=== PATIENT | male | born 1960 | race Caucasian/White ===

== ENCOUNTER 2016-08-22 11:53 | Emergency (ER) | payer MEDICARE ==
[~2016-08-22] VITALS: Ht 177.8 cm; Wt 110.0 kg
[~2016-08-22 11:53] MED LIST: AMIT100T6 PO; GABA250S PO; GLUCTAB PO; GLYB1TAB51 PO; LABE100T2 PO; LANO0.2510 PO; LASI20TA PO; LOVA10TA; MORP1INJ45; NORV2.5T11; POTA8TAB27 PO; SPIR25 PO; SUPETAB30 PO; VITA400C28 PO; WARF7.5 PO
[2016-08-22 11:55] VITALS: BP 109/58; PULSE 82; RESP 14; TEMP 98.7; O2SAT 98
--- NOTE | 2016-08-22 12:10 | PD ---
HPI Chief Complaint: Injury Time Seen by Provider: 12:09 Travel History International Travel<30 days: No Contact w/Intl Traveler<30days: No Traveled to known affect area: No PFSH Past Medical History Arthritis: Yes (GENERALIZED) Autoimmune Disease: No Blood Disorders: No Cancer: No Cardiovascular Problems: Yes (" LOW EF PER ") High Cholesterol: Yes Cerebrovascular Accident: Yes (RIGHT HEMIPARESIS) Diabetes: Yes Endocrine: Yes Genitourinary: No Hypertension: Yes Immune Disorder: No Musculoskeletal: Yes (HX OF SPINAL STENOSIS) Neurologic: Yes Psychiatric: No Reproductive: No Respiratory: No Immunizations Current: Yes Thyroid Disease: Yes (HYPOTHYROIDISM) Past Surgical History Abdominal Surgery: Yes (APPENDECTOMY) Appendectomy: Yes Joint Replacement: Yes (RIGHT TOTAL HIP) Oral Surgery: Yes (FULL MOUTH EXTRACTION) Social History Alcohol Use: No Tobacco Use: Yes (1 PPD) Substance Use: No Allergies-Medications (Allergen,Severity, Reaction): Coded Allergies: Enalapril (Verified Allergy, Severe, Hives, 01/01/09) RXN= HIVES Trazodone (Verified Allergy, Severe, Hives, 01/01/09) RXN= HIVES Reported Meds & Prescriptions Reported Meds & Active Scripts Active Reported Elavil (Amitriptyline HCl) 100 Mg Tab 125 Mg PO DAILY Msir (Morphine Sulfate) 15 Mg Tab 0 Mg QIDPRN UNKNOWN DOSE Neurontin (Gabapentin) 250 Mg/5 Ml Cherelle 0 Mg PO UNKNOWN DOSE Mevacor (Lovastatin) 10 Mg Tab 0 Mg DAILY UNKNOWN DOSE Theragran M (Multivitamins/Minerals Therapeutic) 1 Tab Tab 1 Tab PO DAILY Vitamin D 400 Unit Tab 400 Unit PO Glucophage (Metformin HCl) 500 Mg Tab 500 Mg PO BID Diabeta (Glyburide) 5 Mg Tab 5 Mg PO BID Aldactone (Spironolactone) 25 Mg Tab 25 Mg PO DAILY Coumadin (Warfarin Sodium) 7.5 Mg Tab 7.5 Mg PO DAILY Lanoxin (Digoxin) 0.25 Mg Tab 0.25 Mg PO DAILY Slow-K (Potassium Chloride) 8 Meq Tabcr 8 Meq PO DAILY Lasix (Furosemide) 20 Mg Tab 0 Mg PO DAILY UNKNOWN DOSE Norvasc (Amlodipine Besylate) 2.5 Mg Tab 0 Mg DAILY UNKNOWN DOSE Normodyne (Labetalol HCl) 100 Mg Tab 0 Mg PO TID UNKNOWN DOSE Data Data Last Documented VS Vital Signs Date Time Temp Pulse Resp B/P Pulse Ox O2 Delivery O2 Flow Rate FiO2 08/22/16 11:55 98.7 82 14 109/58 98 Room Air Mark Morton Aug 22, 2016 12:10
--- NOTE | 2016-08-22 13:05 | PD ---
HPI Chief Complaint: Injury Time Seen by Provider: 13:02 Travel History International Travel<30 days: No Contact w/Intl Traveler<30days: No Traveled to known affect area: No History of Present Illness HPI 56-year-old male brought in status post x-rays of the right shoulder showing a humeral neck fracture with dislocation. Patient has a reported fall from the toilet 3 days ago. Patient has x-ray for healthcare plan in [place]. Patient has a history of right-sided weakness secondary to stroke during right hip replacement. 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 Patient also hit his right great toe which resulted in some bleeding. This has been bandaged by the family. Patient's orthopedist is Dr. Kendall. Patient was originally seen by Dr. Nelson, but I took over care. Patient has no fever, chills or other constitutional symptoms. Patient is allergic to amoxicillin, enalapril, Keflex, sulfa, and trazodone. PFSH Past Medical History Arthritis: Yes (GENERALIZED) Autoimmune Disease: No Blood Disorders: No Cancer: No Cardiovascular Problems: Yes (" LOW EF PER ") High Cholesterol: Yes Cerebrovascular Accident: Yes (RIGHT HEMIPARESIS) Diabetes: Yes Endocrine: Yes Genitourinary: No Hypertension: Yes Immune Disorder: No Musculoskeletal: Yes (HX OF SPINAL STENOSIS) Neurologic: Yes Psychiatric: No Reproductive: No Respiratory: No Immunizations Current: Yes Thyroid Disease: Yes (HYPOTHYROIDISM) Past Surgical History Abdominal Surgery: Yes (APPENDECTOMY) Appendectomy: Yes Joint Replacement: Yes (RIGHT TOTAL HIP) Oral Surgery: Yes (FULL MOUTH EXTRACTION) Social History Alcohol Use: No Tobacco Use: Yes (1 PPD) Substance Use: No Allergies-Medications (Allergen,Severity, Reaction): Coded Allergies: Enalapril (Verified Allergy, Severe, Hives, 01/01/09) RXN= HIVES Trazodone (Verified Allergy, Severe, Hives, 01/01/09) RXN= HIVES Amoxicillin (Verified Allergy, Unknown, 08/22/16) Keflex (Verified Allergy, Unknown, 08/22/16) Sulfa (Verified Allergy, Unknown, 08/22/16) Reported Meds & Prescriptions Reported Meds & Active Scripts Active Cleocin (Clindamycin HCl) 150 Mg Cap 300 Mg PO Q6H 10 Days Reported Elavil (Amitriptyline HCl) 100 Mg Tab 125 Mg PO DAILY Morphine Sulfate/Sodium C 50-0.9 mg/50Ml-% (Morphine Sulfate-Sodium Chlori) 15 Mg Tab 0 Mg QIDPRN UNKNOWN DOSE Neurontin (Gabapentin) 250 Mg/5 Ml Cherelle 0 Mg PO UNKNOWN DOSE [id number] Mg 10 Mg Tab 0 Mg DAILY UNKNOWN DOSE Theragran M (Multivitamins/Minerals Therapeutic) 1 Tab Tab 1 Tab PO DAILY Vitamin D (Cholecalciferol) 400 Unit Tab 400 Unit PO Glucophage XR 24 HR (Metformin HCl) 500 Mg Tab 500 Mg PO BID Diabeta (Glyburide) 5 Mg Tab 5 Mg PO BID Aldactone 25 mg (Spironolactone) 25 Mg Tab 25 Mg PO DAILY Coumadin (Warfarin Sodium) 7.5 Mg Tab 7.5 Mg PO DAILY Lanoxin (Digoxin) 0.25 Mg Tab 0.25 Mg PO DAILY Potassium Chloride ER 8 meq (Potassium Chloride) 8 Meq Tabcr 8 Meq PO DAILY Lasix (Furosemide) 20 Mg Tab 0 Mg PO DAILY UNKNOWN DOSE Norvasc (Amlodipine Besylate) 2.5 Mg Tab 0 Mg DAILY UNKNOWN DOSE [id number] Mg 100 Mg Tab 0 Mg PO TID UNKNOWN DOSE Review of Systems General / Constitutional: No: Fever, Chills Eyes: No: Visual changes HENT: No: Headaches Cardiovascular: No: Chest Pain or Discomfort Respiratory: No: Shortness of Breath Gastrointestinal: No: Abdominal Pain Genitourinary: No: Dysuria Musculoskeletal: Positive: Arthralgias, Limited ROM, Pain (see history of present illness.) Skin: No Rash Neurologic: No: Weakness Psychiatric: No: Depression Endocrine: No: Polydipsia Hematologic/Lymphatic: No: Easy Bruising Physical Exam Exam Limitations: Clinical Condition Narrative GENERAL: Patient appears in no acute distress. SKIN: Warm and dry. Normal color. Normal turgor. The right foot shows the great toenail has been removed with small amount of bleeding at the nail base. The right great toe itself has ecchymosis and swelling with localized erythema extending into the dorsal distal foot. There is a chronic nonhealing wound to the right posterior lateral foot consistent with his history. This appears to be granulating well without significant drainage. There is some ruborous changes to the right anterior distal solitario. No lymphangitis. No streaking. Dorsal right foot has increased warmth to the touch compared to the left. HEAD: Atraumatic. Normocephalic. EYES: Pupils equal and round. No scleral icterus. No injection or drainage. ENT: No nasal bleeding or discharge. Mucous membranes pink and moist. Pharynx is normal. NECK: Trachea midline. No JVD. CARDIOVASCULAR: Regular rate and rhythm. RESPIRATORY: No accessory muscle use. Clear to auscultation. Breath sounds equal bilaterally. GASTROINTESTINAL: Abdomen soft, non-tender, nondistended. Hepatic and splenic margins not palpable. MUSCULOSKELETAL: Extremities without clubbing, cyanosis, or edema. No obvious deformities. SEE SKIN. Patient has pain swelling to the right distal medial foot and ankle. Patient also has pain and decreased range of motion the right shoulder. Exam is limited secondary patient's pain and chronic right-sided weakness from previous stroke. NEUROLOGICAL: Awake and alert. No obvious cranial nerve deficits. Motor grossly within normal limits. Five out of 5 muscle strength in the arms and legs. Normal speech for patient's baseline. PSYCHIATRIC: Appropriate mood and affect; insight and judgment normal. Data Data Last Documented VS Vital Signs Date Time Temp Pulse Resp B/P Pulse Ox O2 Delivery O2 Flow Rate FiO2 08/22/16 13:10 89 18 91/57 97 Room Air 08/22/16 11:55 98.7 Orders Knee, Ltd (1 Or 2vws) (08/22/16 ) Tibia/Fibula (Ap/Lat) (08/22/16 ) Ankle, Complete ([id number]) (08/22/16 ) Foot, Complete ([id number]) (08/22/16 ) Complete Blood Count With Diff (08/22/16 12:46) Comprehensive Metabolic Panel (08/22/16 12:46) Prothrombin Time / Inr (Pt) (08/22/16 12:46) Act Partial Throm Time (Ptt) (08/22/16 12:46) Ct Shoulder W/O Contrast (08/22/16 ) Hydromorphone Pf Inj (Dilaudid Pf Inj) (08/22/16 13:45) Blood Glucose (08/22/16 13:50) Clindamycin Inj (Cleocin Inj) (08/22/16 15:00) Sling And Swathe (1/17/17 ) Labs Laboratory Tests Test 08/22/16 13:24 White Blood Count 12.7 TH/MM3 Red Blood Count 5.16 MIL/MM3 Hemoglobin 14.1 GM/DL Hematocrit 42.4 % Mean Corpuscular Volume 82.2 FL Mean Corpuscular Hemoglobin 27.4 PG Mean Corpuscular Hemoglobin 33.3 % Concent Red Cell Distribution Width 17.4 % Platelet Count 383 TH/MM3 Mean Platelet Volume 8.7 FL Neutrophils (%) (Auto) 62.4 % Lymphocytes (%) (Auto) 25.8 % Monocytes (%) (Auto) 9.0 % Eosinophils (%) (Auto) 1.4 % Basophils (%) (Auto) 1.4 % Neutrophils # (Auto) 7.9 TH/MM3 Lymphocytes # (Auto) 3.3 TH/MM3 Monocytes # (Auto) 1.1 TH/MM3 Eosinophils # (Auto) 0.2 TH/MM3 Basophils # (Auto) 0.2 TH/MM3 CBC Comment AUTO DIFF Differential Comment AUTO DIFF CONFIRMED Prothrombin Time 14.5 SEC Prothromb Time International 1.3 RATIO Ratio Activated Partial 27.3 SEC Thromboplast Time Sodium Level 138 MEQ/L Potassium Level 4.1 MEQ/L Chloride Level 103 MEQ/L Carbon Dioxide Level 30.5 MEQ/L Anion Gap 5 MEQ/L Blood Urea Nitrogen 5 MG/DL Creatinine 0.70 MG/DL Estimat Glomerular Filtration 117 ML/MIN Rate Random Glucose 69 MG/DL Calcium Level 8.8 MG/DL Total Bilirubin 0.5 MG/DL Aspartate Amino Transf 20 U/L (AST/SGOT) Alanine Aminotransferase 24 U/L (ALT/SGPT) Alkaline Phosphatase 92 U/L Total Protein 7.4 GM/DL Albumin 2.8 GM/DL [facility] Medical Decision Making Medical Screen Exam Complete: Yes Emergency Medical Condition: Yes Differential Diagnosis Right shoulder dislocation. Right shoulder fracture. Right great toe contusion. Possible fracture. Possible cellulitis. Narrative Course Patient is medically stable at time of exam. Labs ordered including CBC, CMP. X-rays previous he taken are reviewed by myself and Dr. Nelson. Call was placed to Dr. Kendall, and the patient is discussed at [address] of the right shoulder to fully evaluate the injury prior to further treatment. X-rays of the right foot and ankle are also ordered. Patient is given 1 mg Dilaudid IV. All x-rays of the right lower extremity are normal per radiologist. CT of the right shoulder shows nondisplaced proximal humeral head fracture with slight subluxation. Call was placed to Dr. Kendall patient was discussed. He felt this was not a surgical injury. Recommended patient be placed in a sling and swath, with follow-up in one week. Patient is given 600 mg clindamycin IV for question of cellulitis to the right lower extremity. Patient will be continued on clindamycin 300 mg 4 times a day 10 days. Patient is to continue his morphine for pain control at home. Patient is to follow-up with his construction helper regarding his right foot and toe. Dressing changes should be maintained as previous. Patient should follow with Dr. Kendall in 1 week. Patient may return to emergency Department with any worsening symptoms as needed. Diagnosis Primary Impression: Shoulder fracture, right Qualified Code: S42.91XA - Shoulder fracture, right, closed, initial encounter Additional Impressions: Contusion of toe, right Qualified Code: S90.211A - Contusion of right great toe with damage to nail, initial encounter Cellulitis Qualified Code: L03.115 - Cellulitis of right lower extremity Referrals: Ariel Kendall MD 1 week [employer] Patient Instructions: General Instructions Additional Instructions: All x-rays of the right lower extremity are normal per radiologist. CT of the right shoulder shows nondisplaced proximal humeral head fracture with slight subluxation. Call was placed to Dr. Kendall patient was discussed. He felt this was not a surgical injury. Recommended patient be placed in a sling and swath, with follow-up in one week. Patient is given 600 mg clindamycin IV for question of cellulitis to the right lower extremity. Patient will be continued on clindamycin 300 mg 4 times a day 10 days. Patient is to continue his morphine for pain control at home. Patient is to follow-up with his construction helper regarding his right foot and toe. Dressing changes should be maintained as previous. Patient should follow with Dr. Kendall in 1 week. Patient may return to emergency Department with any worsening symptoms as needed. Med/Other Pt SpecificInfo: Prescription(s) given Scripts Clindamycin (Cleocin)150 Mg Oak145 Mg PO Q6H 10 Days Prov:Nisa Nelson MD 08/22/16 Disposition: 01 DISCHARGE HOME Condition: Stable Praveen,Mark F. PA Aug 22, 2016 13:05
[2016-08-22 13:10] VITALS: BP 91/57; PULSE 89; RESP 18; O2SAT 97
[2016-08-22] MEDS ORDERED: HYDROmorphone HCL PF 1 MG/ML VIAL IV PUSH ONE (13:45)
[2016-08-22 13:49] LABS: AUTOMATED NEUTROPHIL # 7.9 TH/MM3 (1.8-7.7); BASOPHIL # 0.2 TH/MM3 (0-0.2); BASOPHIL % 1.4 % (0.0-2.0); EOSINOPHIL # 0.2 TH/MM3 (0-0.4); EOSINOPHIL % 1.4 % (0.0-4.0); HEMATOCRIT 42.4 % (39.0-51.0); LYMPH % 25.8 % (9.0-44.0); LYMPHOCYTE # 3.3 TH/MM3 (1.0-4.8); MEAN CELL VOLUME 82.2 FL (80.0-100.0); MEAN CORPUSCULAR HEMOGLOBIN 27.4 PG (27.0-34.0); MEAN CORPUSCULAR HGB CONC 33.3 % (32.0-36.0); NEUT % 62.4 % (16.0-70.0); PLATELET COUNT 383 TH/MM3 (150-450); RED BLOOD COUNT 5.16 MIL/MM3 (4.50-5.90); RED CELL DISTRIBUTION WIDTH 17.4 % (11.6-17.2); WHITE BLOOD COUNT 12.7 TH/MM3 (4.0-11.0)
[2016-08-22 13:51] LABS: HEMO FLAGS AUTO DIFF
[2016-08-22 13:53] LABS: INTERNATIONAL NORMALIZED RATIO 1.3 RATIO; PROTHROMBIN TIME - PATIENT 14.5 SEC (9.8-11.6)
[2016-08-22 13:56] LABS: APTT (PATIENT) 27.3 SEC (24.3-30.1)
[2016-08-22 13:57] LABS: ALKALINE PHOSPHATASE 92 U/L (45-117); ALT (GPT) 24 U/L (12-78); ANION GAP 5 MEQ/L (5-15); AST (GOT) 20 U/L (15-37); BICARBONATE 30.5 MEQ/L (21.0-32.0); BLOOD UREA NITROGEN 5 MG/DL (7-18); CHLORIDE 103 MEQ/L (98-107); GLOMERULAR FILTRATION RATE 117 ML/MIN (>89); POTASSIUM 4.1 MEQ/L (3.5-5.1); SODIUM (NA) 138 MEQ/L (136-145); TOTAL BILIRUBIN ADULT 0.5 MG/DL (0.2-1.0)
--- NOTE | 2016-08-22 14:18 | RADRPT ---
EXAM DATE/TIME: 08/22/2016 12:59 [facility] COMPARISON: ANKLE RIGHT COMPLETE ([id number]), August 22, 2016, 13:02. INDICATIONS : Fell 2 days ago, pain from right knee to right foot MEDICAL HISTORY : Stroke. Previous right leg fracture SURGICAL HISTORY : Unobtainable ENCOUNTER: Initial ACUITY: 2 days PAIN SCORE: Non-responsive. LOCATION: Right lower leg FINDINGS: There is a chronic healed deformity at the distal tibia. The knee and ankle joints paola ear normally aligned. The bones are osteopenic. There does appear to be edema within the lateral dis coleman thigh and calf region. CONCLUSION: 1. Chronic healed deformity at the distal tibia. 2. An acute fracture is not clearly seen. The bones are osteopenic. 3. Soft-tissue swelling. Gui Saenz MD on August 22, 2016 at 14:09 Board Certified Radiologist. This report was verified electronically.
--- NOTE | 2016-08-22 14:20 | RADRPT ---
EXAM DATE/TIME: 08/22/2016 13:00 [facility] COMPARISON: No previous studies available for comparison. INDICATIONS : Right knee pain, fell 2 days ago. MEDICAL HISTORY : Stroke. Prior lower leg fracture SURGICAL HISTORY : Unobtainable ENCOUNTER: Initial ACUITY: 2 days PAIN SCORE: Non-responsive. LOCATION: Right knee FINDINGS: The bones are osteopenic. A fracture is not seen. The knee joint is normally aligned. An effusion is not seen. Vascular calcifications are seen. There is soft-tissue swelling seen late rally. CONCLUSION: Lateral soft-tissue swelling. A fracture is not seen. Gui Saenz MD on August 22, 2016 at 14:10 Board Certified Radiologist. This report was verified electronically.
--- NOTE | 2016-08-22 14:26 | RADRPT ---
EXAM DATE/TIME: 08/22/2016 13:02 [facility] COMPARISON: No previous studies available for comparison. INDICATIONS : Right ankle pain, fell 2 days ago. Pain from right knee to right foot MEDICAL HISTORY : Stroke. Lower leg fracture SURGICAL HISTORY : Unobtainable ENCOUNTER: Initial ACUITY: 2 days PAIN SCORE: Non-responsive. LOCATION: Right ankle FINDINGS: There appears to be a healed fracture deformity at the distal tibia. An acute fracture is not clearl y seen. The bones are osteopenic. CONCLUSION: 1. An acute bony abnormality is not seen. 2. Chronic deformity seen at the distal tibia from prior fracturing. Gui Saenz MD on August 22, 2016 at 14:17 Board Certified Radiologist. This report was verified electronically.
--- NOTE | 2016-08-22 14:30 | RADRPT ---
EXAM DATE/TIME: 08/22/2016 13:05 [facility] COMPARISON: No previous studies available for comparison. INDICATIONS : Pain and swelling entire right foot, fell 2 days ago. MEDICAL HISTORY : Stroke. Lower leg fracture SURGICAL HISTORY : Unobtainable ENCOUNTER: Initial ACUITY: 2 days PAIN SCORE: Non-responsive. LOCATION: Right foot FINDINGS: The bones are osteopenic. An acute fracture is not seen. The bones and joints appear normally aligned. No foreign bodies are seen. CONCLUSION: Osteopenia. Gui Saenz MD on August 22, 2016 at 14:23 Board Certified Radiologist. This report was verified electronically.
[2016-08-22 14:33] LABS: SCAN/DIFF AUTO DIFF CONFIRMED
[2016-08-22] MEDS ORDERED: CLINDAMYCIN INJ 600 MG in SODIUM CHLORIDE 0.9% INJ 100 ML IV ONE (15:00)
[2016-08-22] MEDS ORDERED: CLIN150 PO (15:06)
--- NOTE | 2016-08-22 16:00 | PD.CONS ---
History of Present Illness Service Podiatry Consult Requested By ED Reason for Consult Right foot wound, right toe wound Primary Care Physician Arabella Antoine Jr, MD Diagnoses: (1) Contusion of toe, right History of Present Illness Pt well known to podiatry, Dr. Partida comes in for a fall with painful right shoulder and stubbing of right gret toe. Saw Dr. Partida yesterday for right plantar wound from excision of lesions months ago. Pt shoulder hurts and toe is achy but no real pain Past Family Social History Allergies: Coded Allergies: Enalapril (Verified Allergy, Severe, Hives, 01/01/09) RXN= HIVES Trazodone (Verified Allergy, Severe, Hives, 01/01/09) RXN= HIVES Amoxicillin (Verified Allergy, Unknown, 08/22/16) Keflex (Verified Allergy, Unknown, 08/22/16) Sulfa (Verified Allergy, Unknown, 08/22/16) Physical Exam Vital Signs Vital Signs Date Time Temp Pulse Resp B/P Pulse Ox O2 Delivery O2 Flow Rate FiO2 08/22/16 13:10 89 18 91/57 97 Room Air 08/22/16 11:55 98.7 82 14 109/58 98 Room Air Physical Exam GENERAL: This is a well-nourished, well-developed patient, in no apparent distress. SKIN: No rashes, ecchymoses or lesions. Cool and dry. HEAD: Atraumatic. Normocephalic. No temporal or scalp tenderness. EYES: Pupils equal round and reactive. Extraocular motions intact. No scleral icterus. No injection or drainage. ENT: Nose without bleeding, purulent drainage or septal hematoma. Throat without erythema, tonsillar hypertrophy or exudate. Uvula midline. Airway patent. NECK: Trachea midline. No JVD or lymphadenopathy. Supple, nontender, no meningeal signs. CARDIOVASCULAR: Regular rate and rhythm without murmurs, gallops, or rubs. RESPIRATORY: Clear to auscultation. Breath sounds equal bilaterally. No wheezes , rales, or rhonchi. GASTROINTESTINAL: Abdomen soft, non-tender, nondistended. No hepato-splenomegaly , or palpable masses. No guarding. MUSCULOSKELETAL: Extremities without clubbing, cyanosis, or edema. No joint tenderness, effusion, or edema noted. No calf tenderness. Negative Homans sign bilaterally. NEUROLOGICAL: Awake and alert. Cranial nerves II through XII intact. Motor and sensory grossly within normal limits. Five out of 5 muscle strength in all muscle groups. Normal speech. Laboratory Laboratory Tests Test 08/22/16 13:24 White Blood Count 12.7 Red Blood Count 5.16 Hemoglobin 14.1 Hematocrit 42.4 Mean Corpuscular Volume 82.2 Mean Corpuscular Hemoglobin 27.4 Mean Corpuscular Hemoglobin 33.3 Concent Red Cell Distribution Width 17.4 Platelet Count 383 Mean Platelet Volume 8.7 Neutrophils (%) (Auto) 62.4 Lymphocytes (%) (Auto) 25.8 Monocytes (%) (Auto) 9.0 Eosinophils (%) (Auto) 1.4 Basophils (%) (Auto) 1.4 Neutrophils # (Auto) 7.9 Lymphocytes # (Auto) 3.3 Monocytes # (Auto) 1.1 Eosinophils # (Auto) 0.2 Basophils # (Auto) 0.2 CBC Comment AUTO DIFF Differential Comment AUTO DIFF CONFIRMED Prothrombin Time 14.5 Prothromb Time International 1.3 Ratio Activated Partial 27.3 Thromboplast Time Sodium Level 138 Potassium Level 4.1 Chloride Level 103 Carbon Dioxide Level 30.5 Anion Gap 5 Blood Urea Nitrogen 5 Creatinine 0.70 Estimat Glomerular Filtration 117 Rate Random Glucose 69 Calcium Level 8.8 Total Bilirubin 0.5 Aspartate Amino Transf 20 (AST/SGOT) Alanine Aminotransferase 24 (ALT/SGPT) Alkaline Phosphatase 92 Total Protein 7.4 Albumin 2.8 Result Diagram: 08/22/16 1324 08/22/16 1324 Imaging Xray no right foot fracture seen Course RLE-Pulses faint Sensation deminsihed Mild diffuse right leg erythema Plantar wound about 1 cmx1.2 depth, no drainage no sign of infection Right distal tuft of hallux contusion with bruising no open wound noted, thickening of toenail Assessment and Plan Assessment and Plan Right great toe contusion, right lower extremity cellulitis, right chronic wound Foot dressed with dry dressing and compression to knee Plan is F/U with Dr. Partida on DC Antibiotics per primary to clear cellulitis Protect toe and Neosporin and bandaid sufficient thanks for consult Problem Qualifiers (1) Contusion of toe, right: Qualified Code: S90.211A - Contusion of right great toe with damage to nail, initial encounter Florencio Parra DPM Aug 22, 2016 16:00
--- NOTE | 2016-08-22 16:02 | RADRPT ---
EXAM DATE/TIME: 08/22/2016 14:21 [facility] COMPARISON: No previous studies available for comparison. INDICATIONS : Right shoulder pain. Fell from toilet 3 days ago. RADIATION DOSE: 41.45 CTDIvol (mGy) MEDICAL HISTORY : Cardiovascular disease. Diabetes mellitus type 2. Hypertension. SURGICAL HISTORY : None. ENCOUNTER: Initial ACUITY: 3 days PAIN SCALE: 8/10 LOCATION: Right shoulder. TECHNIQUE: Volumetric scanning of the shoulder was performed. Using automated exposure control and adjustment o f the mA and/or kV according to patient size, radiation dose was kept as low as reasonably achievable to obtain optimal diagnostic quality images. FINDINGS: BONES: Comminuted but only minimally displaced fracture through the humeral head and neck. JOINTS: No evidence of joint narrowing or effusion. No dislocation. SOFT TISSUES: Muscles, tendons, and neurovascular structures are grossly unremarkable. The integrity of the rotato r cuff tendons cannot be reliably evaluated on CT without intra-articular contrast. No evidence of m ass, organized fluid collection, or foreign body. CONCLUSION: Comminuted but only minimally displaced fracture through the humeral head and neck with no dislo cation. Sarabjit Russo MD on August 22, 2016 at 15:58 Board Certified Radiologist. This report was verified electronically.
--- NOTE | 2016-08-22 17:31 | PD ---
Data Data Last Documented VS Vital Signs Date Time Temp Pulse Resp B/P Pulse Ox O2 Delivery O2 Flow Rate FiO2 08/22/16 13:10 89 18 91/57 97 Room Air 08/22/16 11:55 98.7 Orders Knee, Ltd (1 Or 2vws) (08/22/16 ) Tibia/Fibula (Ap/Lat) (08/22/16 ) Ankle, Complete ([id number]) (08/22/16 ) Foot, Complete ([id number]) (08/22/16 ) Complete Blood Count With Diff (08/22/16 12:46) Comprehensive Metabolic Panel (08/22/16 12:46) Prothrombin Time / Inr (Pt) (08/22/16 12:46) Act Partial Throm Time (Ptt) (08/22/16 12:46) Ct Shoulder W/O Contrast (08/22/16 ) Hydromorphone Pf Inj (Dilaudid Pf Inj) (08/22/16 13:45) Blood Glucose (08/22/16 13:50) Clindamycin Inj (Cleocin Inj) (08/22/16 15:00) Sling And Swathe (08/22/16 ) Sling And Swathe (08/22/16 ) Labs Laboratory Tests Test 08/22/16 13:24 White Blood Count 12.7 TH/MM3 Red Blood Count 5.16 MIL/MM3 Hemoglobin 14.1 GM/DL Hematocrit 42.4 % Mean Corpuscular Volume 82.2 FL Mean Corpuscular Hemoglobin 27.4 PG Mean Corpuscular Hemoglobin 33.3 % Concent Red Cell Distribution Width 17.4 % Platelet Count 383 TH/MM3 Mean Platelet Volume 8.7 FL Neutrophils (%) (Auto) 62.4 % Lymphocytes (%) (Auto) 25.8 % Monocytes (%) (Auto) 9.0 % Eosinophils (%) (Auto) 1.4 % Basophils (%) (Auto) 1.4 % Neutrophils # (Auto) 7.9 TH/MM3 Lymphocytes # (Auto) 3.3 TH/MM3 Monocytes # (Auto) 1.1 TH/MM3 Eosinophils # (Auto) 0.2 TH/MM3 Basophils # (Auto) 0.2 TH/MM3 CBC Comment AUTO DIFF Differential Comment AUTO DIFF CONFIRMED Prothrombin Time 14.5 SEC Prothromb Time International 1.3 RATIO Ratio Activated Partial 27.3 SEC Thromboplast Time Sodium Level 138 MEQ/L Potassium Level 4.1 MEQ/L Chloride Level 103 MEQ/L Carbon Dioxide Level 30.5 MEQ/L Anion Gap 5 MEQ/L Blood Urea Nitrogen 5 MG/DL Creatinine 0.70 MG/DL Estimat Glomerular Filtration 117 ML/MIN Rate Random Glucose 69 MG/DL Calcium Level 8.8 MG/DL Total Bilirubin 0.5 MG/DL Aspartate Amino Transf 20 U/L (AST/SGOT) Alanine Aminotransferase 24 U/L (ALT/SGPT) Alkaline Phosphatase 92 U/L Total Protein 7.4 GM/DL Albumin 2.8 GM/DL MDM Supervised Visit with DELICIA: Yes Narrative Course The history, exam, and medical decision-making in the associated midlevel provider note were completed with my assistance. I reviewed and agree with the findings presented. I attest that I had a [id number] encounter with the patient on the same day, and personally performed and documented my assessment and findings in the medical record. *My assessment and Findings: This is a 56-year-old male who presents to the emergency department having had a fall 3 days ago injuring his right shoulder and right lower extremity. He also has chronic lymphedema and recurrent cellulitis in his lower extremities. Patient was placed on a monitor and an IV was established. X-rays were obtained CT of the shoulder was obtained at Dr. Diggs request. Patient has evidence of a humeral neck fracture with no dislocation. Patient will be discharged home in a sling and swath and will follow-up with Dr. Garcia as an outpatient. Diagnosis Primary Impression: Shoulder fracture, right Qualified Code: S42.91XA - Shoulder fracture, right, closed, initial encounter Additional Impressions: Cellulitis Qualified Code: L03.115 - Cellulitis of right lower extremity Contusion of toe, right Qualified Code: S90.211A - Contusion of right great toe with damage to nail, initial encounter Referrals: Ariel Kendall MD 1 week Clin Tech Patient Instructions: General Instructions Departure Forms: Tests/Procedures Additional Instruction: All x-rays of the right lower extremity are normal per radiologist. CT of the right shoulder shows nondisplaced proximal humeral head fracture with slight subluxation. Call was placed to Dr. Kendall patient was discussed. He felt this was not a surgical injury. Recommended patient be placed in a sling and swath, with follow-up in one week. Patient is given 600 mg clindamycin IV for question of cellulitis to the right lower extremity. Patient will be continued on clindamycin 300 mg 4 times a day 10 days. Patient is to continue his morphine for pain control at home. Patient is to follow-up with his slitter operator regarding his right foot and toe. Dressing changes should be maintained as previous. Patient should follow with Dr. Kendall in 1 week. Patient may return to emergency Department with any worsening symptoms as needed. Scripts Clindamycin (Cleocin)150 Mg [id number] Mg PO Q6H 10 Days Prov:Nisa Nelson MD 08/22/16 Disposition: 01 DISCHARGE HOME Condition: Stable Nisa Nelson MD Aug 22, 2016 17:31
== END 2016-08-22 17:40 | disposition home or self-care (01) ==
LOC: NEPC 11:53
DX: S90.211A Contusion of right great toe with damage to nail, initial encounter (principal); L03.115 Cellulitis of right lower limb; S42.291A Other displaced fracture of upper end of right humerus, initial encounter for closed fracture; I89.0 Lymphedema, not elsewhere classified; E78.00 Pure hypercholesterolemia, unspecified; E11.9 Type 2 diabetes mellitus without complications; I10 Essential (primary) hypertension; E03.9 Hypothyroidism, unspecified; I69.359 Hemiplegia and hemiparesis following cerebral infarction affecting unspecified side; F17.210 Nicotine dependence, cigarettes, uncomplicated; W18.11XA Fall from or off toilet without subsequent striking against object, initial encounter
CPT/HCPCS: 29240; 73200; 73560; 73590; 73610; 73630; 80053; 85025; 85610; 85730; 96374; 96375; 99284; J1170

== ENCOUNTER 2018-07-23 10:18 | Observation (INO) ==
--- NOTE | 2018-07-23 11:07 | ED ---
HPI General Chief Complaint: Chest Pain Stated Complaint: Chest pain Time Seen by Provider: 07/23/18 10:46 Source: patient Mode of arrival: ambulatory Limitations: other (Expressive aphasia) History of Present Illness HPI narrative: 58-year-old male presents with his with note of chest pain. He has expressive aphasia from a prior stroke and history is significantly limited. She states he pointed out his chest as if it was really bothering him this morning when they are on the way to his orthopedic physician follow-up. He was going to that physician for evaluation of intermittent knee pain. History is obtained from the and limited Related Data Home Medications Medication Instructions Recorded Confirmed alprazolam 0.25 mg PO BID 07/23/18 07/23/18 escitalopram oxalate 20 mg PO DAILY 07/23/18 07/23/18 fluticasone 2 spray INTRANASAL DAILY 07/23/18 07/23/18 furosemide 20 mg PO DAILY 07/23/18 07/23/18 gabapentin 600 mg PO TID 07/23/18 07/23/18 gentamicin 1 applic TOPICAL BID 07/23/18 07/23/18 glipizide 10 mg PO BID 07/23/18 07/23/18 levothyroxine 75 mcg PO DAILY 07/23/18 07/23/18 lovastatin 40 mg PO QPM 07/23/18 07/23/18 metformin 1,000 mg PO BID 07/23/18 07/23/18 montelukast 10 mg PO QPM 07/23/18 07/23/18 potassium chloride 10 meq PO DAILY 07/23/18 07/23/18 warfarin 5 mg PO 07/23/18 warfarin 7.5 mg PO 07/23/18 Allergies Allergy/AdvReac Type Severity Reaction Status Date / Time enalaprilat Allergy Severe Hives Unverified 03/20/17 16:24 trazodone Allergy Severe Hives Unverified 03/20/17 16:24 amoxicillin Allergy Unknown Unverified 03/20/17 16:24 cephalexin Allergy Unknown Unverified 03/20/17 16:24 Sulfa (Sulfonamide Allergy Unknown Unverified 03/20/17 16:24 Antibiotics) Review of Systems ROS: all other systems reviewed are negative (per ) PMFSH History History Provided By: Family Member (Hypertension, diabetes, stroke per ) Medical History Medical History Chest pain (Acute) Diabetes (Acute) Primary cancer of skin of right foot (Acute) Stroke (Acute) Surgical History Surgical History History of total right hip replacement (Acute) Social History Social History Substance History: No History of Abuse Smoking Status: Current every day smoker Tobacco Type: Cigarettes How Often Do You Have a Drink Containing Alcohol: Monthly or less Recent Travel in [facility] within the Last 8 Weeks: No Recent Out of Country Travel within the Last 8 Weeks: No Exam Narrative Exam Narrative: GENERAL: 58 y/o male in no apparent distress SKIN: Focused skin assessment warm/dry. HEAD: Atraumatic. Normocephalic. EYES: Pupils equal and round. No scleral icterus. No injection or drainage. ENT: No nasal bleeding or discharge. Mucous membranes pink and moist. NECK: Trachea midline. CARDIOVASCULAR: Regular rate and rhythm. RESPIRATORY: No accessory muscle use. no increased effort GASTROINTESTINAL: Abdomen soft, non-tender, nondistended. MUSCULOSKELETAL: No obvious deformities. No clubbing. No cyanosis. Compression bandage noted to right leg NEUROLOGICAL: Awake. Wheelchair-bound, moves all extremities. Expressive aphasia Course Reevaluation(s) Reevaluation #1: Patient's INR is subtherapeutic at 1.7. Will check CT pulmonary to rule out PE given risk factors, Doppler of right lower leg will be added on as patient also has swelling and redness noted to this leg when bandage removed Reevaluation #2: CT without PE, Doppler ultrasound without DVT. Given patient' s risk factors with diabetes and age he will need further cardiac workup. He was given clindamycin for possible beginnings of cellulitis to his right lower leg. Given his wheelchair-bound status and other comorbidities he will need to be admitted to medicine for further cardiac workup Consultations Consultation #1: dr dela cruz agrees to admit Initial Documented Vital Signs Temperature 97.6 F 07/23/18 10:26 Pulse Rate 65 07/23/18 10:26 Respiratory Rate 16 07/23/18 10:26 Blood Pressure 114/64 07/23/18 10:26 Pulse Oximetry 96 07/23/18 10:26 Last Documented Vital Signs Temperature 97.6 F 07/23/18 10:26 Pulse Rate 60 07/23/18 12:34 Respiratory Rate 17 07/23/18 12:34 Blood Pressure 96/60 L 07/23/18 12:34 Pulse Oximetry 94 L 07/23/18 12:34 Medical Decision Making MDM Narrative Medical decision making narrative: We will check blood work, chest x-ray, EKG. INR is subtherapeutic will check CT to rule out PE. If initial testing is negative and INR is therapeutic will admit for further cardiac testing Medical Screen Exam Complete: Yes Emergency Medical Condition: Yes Differential Diagnosis Differential Diagnosis: pe, musculoskeletal, cardiac, gastritis Lab Data Lab results reviewed: Yes I reviewed the patient's lab results. Result diagrams: 07/23/18 11:12 07/23/18 11:12 Lab Results 07/23/18 07/23/18 07/23/18 Range/Units 11:12 11:12 11:12 WBC 9.3 (4.0-11.0) th/mm3 RBC 5.31 (4.50-5.90) mil/mm3 Hgb 16.2 (13.0-17.0) gm/dL Hct 47.5 (39.0-51.0) % MCV 89.4 (80.0-100.0) fL MCH 30.6 (27.0-34.0) pg MCHC 34.2 (32.0-36.0) % RDW 16.4 (11.6-17.2) % Plt Count 377 (150-450) th/mm3 MPV 8.4 (7.0-11.0) fL Neut % (Auto) 69.8 (16.0-70.0) % Lymph % (Auto) 18.8 (9.0-44.0) % Bledsoe % (Auto) 7.7 (0.0-8.0) % Eos % (Auto) 2.8 (0.0-4.0) % Baso % (Auto) 0.9 (0.0-2.0) % Neut # (Auto) 6.5 (1.8-7.7) th/mm3 Lymph # (Auto) 1.7 (1.0-4.8) th/mm3 Bledsoe # (Auto) 0.7 (0.0-0.9) th/mm3 Eos # (Auto) 0.3 (0.0-0.4) th/mm3 Baso # (Auto) 0.1 (0.0-0.2) th/mm3 WBC Differential . Differential Comment Auto diff final PT 16.9 H (9.8-11.6) sec INR 1.7 Ratio APTT 41.1 H (23.4-31.7) sec Sodium 139 (136-145) meq/L Potassium 4.4 (3.5-5.1) meq/L Chloride 104 (98-107) meq/L Carbon Dioxide 28.0 (21.0-32.0) meq/L Anion Gap 7 (5-15) meq/L BUN 8 (7-18) mg/dL Creatinine 0.83 (0.60-1.30) mg/dL Estimated GFR Greater than 89 (>89) mL/min Random Glucose 85 (74-106) mg/dL Calcium 8.9 (8.5-10.1) mg/dL Magnesium 2.2 (1.5-2.5) mg/dL Total Bilirubin 0.4 (0.2-1.0) mg/dL AST 18 (15-37) U/L ALT 20 (12-78) U/L Alkaline Phosphatase 121 H (45-117) U/L Total Creatine Kinase 40 (39-308) U/L Troponin I Less than 0.02 L (0.02-0.05) ng/mL B-Natriuretic Peptide (0-100) pg/mL Total Protein 8.2 (6.4-8.2) g/dL Albumin 3.1 L (3.4-5.0) g/dL 07/23/18 Range/Units 13:08 WBC (4.0-11.0) th/mm3 RBC (4.50-5.90) mil/mm3 Hgb (13.0-17.0) gm/dL Hct (39.0-51.0) % MCV (80.0-100.0) fL MCH (27.0-34.0) pg MCHC (32.0-36.0) % RDW (11.6-17.2) % Plt Count (150-450) th/mm3 MPV (7.0-11.0) fL Neut % (Auto) (16.0-70.0) % Lymph % (Auto) (9.0-44.0) % Bledsoe % (Auto) (0.0-8.0) % Eos % (Auto) (0.0-4.0) % Baso % (Auto) (0.0-2.0) % Neut # (Auto) (1.8-7.7) th/mm3 Lymph # (Auto) (1.0-4.8) th/mm3 Bledsoe # (Auto) (0.0-0.9) th/mm3 Eos # (Auto) (0.0-0.4) th/mm3 Baso # (Auto) (0.0-0.2) th/mm3 WBC Differential Differential Comment PT (9.8-11.6) sec INR Ratio APTT (23.4-31.7) sec Sodium (136-145) meq/L Potassium (3.5-5.1) meq/L Chloride (98-107) meq/L Carbon Dioxide (21.0-32.0) meq/L Anion Gap (5-15) meq/L BUN (7-18) mg/dL Creatinine (0.60-1.30) mg/dL Estimated GFR (>89) mL/min Random Glucose (74-106) mg/dL Calcium (8.5-10.1) mg/dL Magnesium (1.5-2.5) mg/dL Total Bilirubin (0.2-1.0) mg/dL AST (15-37) U/L ALT (12-78) U/L Alkaline Phosphatase (45-117) U/L Total Creatine Kinase (39-308) U/L Troponin I (0.02-0.05) ng/mL B-Natriuretic Peptide 30 (0-100) pg/mL Total Protein (6.4-8.2) g/dL Albumin (3.4-5.0) g/dL Imaging Data Attestation: I personally reviewed and interpreted this imaging study as follows : Radiologist's impression: Chest X-Ray 07/23/18 10:38 CONCLUSION: Mild increased perihilar interstitial markings are noted particularly on the left consistent with possible perihilar infiltrates. Chest CTA 07/23/18 11:47 CONCLUSION: 1. This study is negative for pulmonary embolism. 2. Patchy infiltrate within the right lower lobe consistent with atelectasis and/or pneumonia. Clinical correlation is recommended. 3. Moderate bullous emphysema bilaterally. 4. Elevation of the right hemidiaphragm. 5. Degenerative changes and scoliosis of the thoracic spine. Venous Doppler Study 07/23/18 14:09 CONCLUSION: 1. The study is negative for lower extremity deep venous thrombosis. Discharge Plan Discharge Disposition Patient Disposition: ED Admit(ED Internal Use Only) Discharge Order Discharge Orders: ED Use Only Admit Order (Routine); Ordered 07/23/18 Ordered By: Sharron Garcia Discharge Details Diagnosis: Chest pain Physicians Team ED Provider: Sharron Garcia Primary Care Provider: Arabella Antoine Rxs /Orders / Referrals /Forms Prescriptions: No Action gabapentin 600 mg Tablet 600 mg PO TID RF: 0 lovastatin 40 mg Tablet 40 mg PO QPM RF: 0 potassium chloride 10 mEq Tablet Extended Release 10 meq PO DAILY RF: 0 levothyroxine 75 mcg Tablet 75 mcg PO DAILY RF: 0 alprazolam 0.25 mg Tablet 0.25 mg PO BID RF: 0 montelukast 10 mg Tablet 10 mg PO QPM RF: 0 furosemide 20 mg Tablet 20 mg PO DAILY RF: 0 fluticasone 50 mcg/actuation [place],Suspension 2 spray INTRANASAL DAILY RF: 0 escitalopram oxalate 20 mg Tablet 20 mg PO DAILY RF: 0 gentamicin 0.1 % Ointment 1 applic TOPICAL BID RF: 0 glipizide 10 mg Tablet 10 mg PO BID RF: 0 metformin 1,000 mg Tablet 1,000 mg PO BID RF: 0 warfarin 5 mg Tablet 5 mg PO RF: 0 warfarin 7.5 mg Tablet 7.5 mg PO RF: 0 Discharge Instructions Patient Printed Instructions: Chest Pain (ED) Status ED Status: Admitted Observation Patient
[2018-07-23 11:33] LABS: Baso # (Auto) 0.1 th/mm3 (0.0-0.2); Baso % (Auto) 0.9 % (0.0-2.0); Eos # (Auto) 0.3 th/mm3 (0.0-0.4); Eos % (Auto) 2.8 % (0.0-4.0); Hematocrit 47.5 % (39.0-51.0); Hemoglobin 16.2 gm/dL (13.0-17.0); Lymph # (Auto) 1.7 th/mm3 (1.0-4.8); Lymph % (Auto) 18.8 % (9.0-44.0); Mean Corpuscular HGB Conc 34.2 % (32.0-36.0); Mean Corpuscular Hemoglobin 30.6 pg (27.0-34.0); Mean Corpuscular Volume 89.4 fL (80.0-100.0); Mean Platelet Volume 8.4 fL (7.0-11.0); Mono # (Auto) 0.7 th/mm3 (0.0-0.9); Mono % (Auto) 7.7 % (0.0-8.0); Neut # (Auto) 6.5 th/mm3 (1.8-7.7); Neut % (Auto) 69.8 % (16.0-70.0); Platelet Count 377 th/mm3 (150-450); Red Blood Count 5.31 mil/mm3 (4.50-5.90); Red Cell Distribution Width 16.4 % (11.6-17.2); White Blood Count 9.3 th/mm3 (4.0-11.0)
[2018-07-23 11:44] LABS: Activated Partial Thrombo Time 41.1 sec (23.4-31.7); INR 1.7 Ratio; Prothrombin Time 16.9 sec (9.8-11.6)
[2018-07-23 11:45] LABS: Alanine Aminotransferase 20 U/L (12-78); Albumin 3.1 g/dL (3.4-5.0); Anion Gap 7 meq/L (5-15); Aspartate Aminotransferase 18 U/L (15-37); Blood Urea Nitrogen 8 mg/dL (7-18); Calcium 8.9 mg/dL (8.5-10.1); Chloride 104 meq/L (98-107); Glomerular Filtration Rate Greater Than 89 mL/min (>89); Glucose,Random 85 mg/dL (74-106); Magnesium 2.2 mg/dL (1.5-2.5); Potassium 4.4 meq/L (3.5-5.1); Sodium 139 meq/L (136-145)
[2018-07-23 11:49] LABS: Alkaline Phosphatase 121 U/L (45-117); Total Protein 8.2 g/dL (6.4-8.2)
[2018-07-23 11:52] LABS: Creatine Kinase 40 U/L (39-308)
--- NOTE | 2018-07-23 12:48 | XR ---
EXAM DATE: 07/23/2018 12:11 PM EST AGE/SEX: 58 years / Male INDICATIONS: Chest pain. CLINICAL DATA: This is the patient's initial encounter. Patient reports that signs and symptoms have been present for 1 day and indicates a pain score of 5/10. MEDICAL/SURGICAL HISTORY: . Cardiovascular disease. Diabetes mellitus type 2. Hypertension. No ne. COMPARISON: No prior exams available for comparison. FINDINGS: Mild increased perihilar interstitial markings are noted particularly on the left consistent with pos sible perihilar infiltrates. The heart is top normal in size. CONCLUSION: Mild increased perihilar interstitial markings are noted particularly on the left consistent with pos sible perihilar infiltrates. Electronically signed by: Ike Reina MD Board Certified Radiologist 07/23/2018 12:46 PM EST
--- NOTE | 2018-07-23 15:19 | US ---
EXAM DATE: 07/23/2018 2:48 PM EST AGE/SEX: 58 years / Male INDICATIONS: Right leg swelling. CLINICAL DATA: This is the patient's initial encounter. Patient reports that signs and symptoms have been present for 2 days and indicates a pain score of 7/10. MEDICAL/SURGICAL HISTORY: Diabetes. Stroke. Right foot skin cancer. Total knee replacement, ri ght. COMPARISON: TLI, MR LOWER LEG W/O CONTRAST, RIGHT, 11/14/2016. . TECHNIQUE: Venous ultrasound of both lower extremities was performed from the inguinal ligament to t he proximal calf. Real-time, color Doppler and spectral tracing, compression and augmentation techni ques were used. FINDINGS: Normal compression of the deep venous system from the inguinal region to the proximal calf . No echogenic clot is seen. Normal response of the venous system to augmentation and respiration. CONCLUSION: 1. The study is negative for lower extremity deep venous thrombosis. Electronically signed by: Ike Reina MD Board Certified Radiologist 07/23/2018 3:17 PM EST
--- NOTE | 2018-07-23 15:24 | CT ---
EXAM DATE: 07/23/2018 3:15 PM EST AGE/SEX: 58 years / Male INDICATIONS: Chest pain. Short of breath. CLINICAL DATA: This is the patient's initial encounter. Patient reports that signs and symptoms have been present for 1 day and indicates a pain score of 4/10. MEDICAL/SURGICAL HISTORY: Diabetes. Stroke. None. RADIATION DOSE: 10.81 CTDI (mGy) COMPARISON: No prior exams available for comparison. TECHNIQUE: Volumetric scanning was performed using a multi-row detector CT scanner during bolus infu matthew of 73 ml Omnipaque 350 (iohexol) nonionic water-soluble contrast as a single exam dose. The leroy a was post processed with a variety of visualization algorithms including full volume maximum intensi ty projection and sliding thin slab reformation. Using automated exposure control and adjustment of t he mA and/or kV according to patient size, radiation dose was kept as low as reasonably achievable to obtain optimal diagnostic quality images. DICOM format image data is available electronically for r eview and comparison. FINDINGS: Pulmonary Arteries: No filling defects are seen in the pulmonary arteries out to the subsegmental ve ssels. The left and right pulmonary arteries are normal in diameter. Lung: Moderate bullous emphysema is noted bilaterally. Patchy infiltrate is noted within the right l ower lobe consistent with atelectasis and/or pneumonia. Clinical correlation is recommended. There is elevation of the right hemidiaphragm. Effusion: None. Mediastinum: No evidence of mediastinal or hilar adenopathy. Other: The axilla is unremarkable. Degenerative changes and scoliosis are noted throughout the thora cic spine. CONCLUSION: 1. This study is negative for pulmonary embolism. 2. Patchy infiltrate within the right lower lobe consistent with atelectasis and/or pneumonia. Clini mitch correlation is recommended. 3. Moderate bullous emphysema bilaterally. 4. Elevation of the right hemidiaphragm. 5. Degenerative changes and scoliosis of the thoracic spine. Electronically signed by: Ike Reina MD Board Certified Radiologist 07/23/2018 3:22 PM EST
[2018-07-23] MEDS ORDERED: Clindamycin Inj 600 MG/4 ML Vial IV.SIG ONE (15:30)
[2018-07-23] MEDS ORDERED: Acetaminophen 325 MG Tablet PO PRN (16:08)
[2018-07-23] MEDS ORDERED: ALPRAZolam 0.25 MG Tablet PO PRN (16:13)
[2018-07-23] MEDS ORDERED: Enoxaparin Inj 40 MG/0.4 ML Syringe SQ ONE (16:15)
--- NOTE | 2018-07-23 16:19 | P.HPIM ---
History of Present Illness Primary Care Physician: Arabella Antoine MD History of Present Illness: Mr. 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 Pt presented to the ED at [facility] [place] on 07/23/18 with reported chest pain. The pt is unable to provide meaningful information due to his expressive aphasia from a prior stroke so history is significantly limited. His was present for the examination and states that the pt pointed to his chest as if it was really bothering him this morning when they were on their way to his orthopedic physician follow-up for evaluation of intermittent knee pain. Labs in the ED notes his Coumadin to be subtherapeutic with INR 1.7. His CE were negative x 1. He had a CTA which was negative for PE, noted patchy infiltrate within the right lower lobe consistent with atelectasis, moderate bullous emphysema bilaterally. Pt was also noted to have some redness and swelling to his RLE but his states that these are chronic skin changes. LE Venous Doppler Study was negative for lower extremity deep venous thrombosis. He was given a dose of Clindamycin for possible cellulitis in the ED. 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 COPD Diabetes HTN Hyperlipidemia Hypothyroidism Prostate cancer currently undergoing XRT with Dr. Lea Osteoarthritis 2D echo (04/16/15): - Estimated EF 50-55% - Diastolic dysfunction Past Surgical Hx: Appendectomy Right knee arthroscopy Total hip replacement, right Family Hx: Noncontributory Social Hx: Hx of tobacco use No reported alcohol or illicit drug use Pt is wheelchair bound Diagnosis (1) History of CVA with residual deficit: (2) Chest pain: (3) HTN (hypertension): (4) COPD (chronic obstructive pulmonary disease): (5) Diabetes mellitus: Medications and Allergies Allergies Allergy/AdvReac Type Severity Reaction Status Date / Time enalaprilat Allergy Severe Hives Verified 07/24/18 16:10 trazodone Allergy Severe Hives Verified 07/24/18 16:10 amoxicillin Allergy Mild Hives Verified 07/24/18 16:10 cephalexin Allergy Mild Hives Verified 07/24/18 16:10 Sulfa (Sulfonamide Allergy Mild Hives Verified 07/24/18 16:10 Antibiotics) Home Medications Medication Instructions Recorded Confirmed Type alprazolam 0.25 mg PO BID PRN 07/23/18 07/23/18 History escitalopram oxalate 20 mg PO HS 07/23/18 07/23/18 History fluticasone 2 spray INTRANASAL DAILY 07/23/18 07/23/18 History furosemide 20 mg PO DAILY 07/23/18 07/23/18 History gabapentin 600 mg PO TID 07/23/18 07/23/18 History gentamicin 1 applic TOPICAL BID 07/23/18 07/23/18 History glipizide 5 mg PO BID 07/23/18 07/23/18 History levothyroxine 75 mcg PO DAILY 07/23/18 07/23/18 History lovastatin 40 mg PO QPM 07/23/18 07/23/18 History metformin 1,000 mg PO BID 07/23/18 07/23/18 History montelukast 10 mg PO QPM 07/23/18 07/23/18 History morphine 30 mg PO Q6H PRN 07/23/18 07/23/18 History potassium chloride 10 meq PO DAILY 07/23/18 07/23/18 History warfarin 5 mg PO SUTUWEFRSA 07/23/18 07/23/18 History warfarin 7.5 mg PO MOTH 07/23/18 07/23/18 History Active Medications: Active Medications Acetaminophen (Tylenol) 650 mg PO Q4H PRN PRN Reason: Temp > 100.4 Al Hydroxide/Mg Hydroxide (Milk Of Magnesia Liq) 30 ml PO Q12H PRN PRN Reason: Mild Constipation Alprazolam (Xanax) 0.25 mg PO BID PRN PRN Reason: Anxiety Escitalopram Oxalate (Lexapro) 20 mg PO HS NEETU Levothyroxine Sodium (Synthroid) 75 mcg PO DAILY NEETU Montelukast Sodium (Singulair) 10 mg PO QPM NEETU Non-Formulary Medication (Gabapentin [Gabapentin]) 600 mg PO TID NEETU Non-Formulary Medication (Lovastatin [Lovastatin]) 40 mg PO QPM NEETU Ondansetron HCl (Zofran Inj) 4 mg IV.PUSH Q6H PRN PRN Reason: NAUSEA OR VOMITING Senna/Docusate Sodium (Carol-Colace) 1 tab PO BID [facility] Sodium Chloride (Ns Flush) 2 ml IV.FLUSH UNSCH PRN PRN Reason: FLUSH AFTER USING IV ACCESS Sodium Chloride (Ns Flush) 2 ml IV.FLUSH BID NEETU Sodium Chloride (Ns Flush) 2 ml IV.FLUSH PRN PRN PRN Reason: FLUSH AFTER USING IV ACCESS Warfarin Sodium (Coumadin) 5 mg PO SUTUWEFRSA NEETU Warfarin Sodium (Coumadin) 7.5 mg PO MOTH [facility] Physical Exam Vital signs: Last Vital Signs Temp 97.6 F 07/23/18 10:26 Pulse 60 07/23/18 12:34 Resp 17 07/23/18 12:34 BP 96/60 L 07/23/18 12:34 Pulse Ox 94 L 07/23/18 12:34 Narrative: GENERAL: NAD, Awake, alert, expressive aphasia SKIN: Warm and dry. Chronic skin changes on the RLE with some swelling and mild erythema HEENT: Atraumatic. Normocephalic. Pupils equal and round. No scleral icterus. No injection or drainage. No nasal bleeding or discharge. Mucous membranes pink and moist. NECK: Trachea midline. No JVD. CARDIO: Regular RESP: Clear to auscultation. Breath sounds equal bilaterally. ABD: +BS, soft, non-tender, nondistended. Hepatic and splenic margins not palpable. EXT: Extremities without clubbing, cyanosis, or edema. No obvious deformities. NEURO: Awake and alert. Right sided paralysis. Expressive aphasia. PSYCH: Appropriate mood and affect Results Labs CBC & Chem 7: 07/24/18 06:39 07/24/18 06:39 Imaging Chest X-Ray 07/23/18 10:38 CONCLUSION: Mild increased perihilar interstitial markings are noted particularly on the left consistent with possible perihilar infiltrates. Chest CTA 07/23/18 11:47 CONCLUSION: 1. This study is negative for pulmonary embolism. 2. Patchy infiltrate within the right lower lobe consistent with atelectasis and/or pneumonia. Clinical correlation is recommended. 3. Moderate bullous emphysema bilaterally. 4. Elevation of the right hemidiaphragm. 5. Degenerative changes and scoliosis of the thoracic spine. Venous Doppler Study 07/23/18 14:09 CONCLUSION: 1. The study is negative for lower extremity deep venous thrombosis. Caprini VTE Risk Assessment Caprini VTE Risk Assessment: Moderate/High Risk (score >= 2) Caprini Risk Assessment Model: Point Value = 1 Point Value = 2 Point Value = 3 Point Value = 5 Age 41-60 Minor surgery BMI > 25 kg/m2 Swollen legs Varicose veins or History of unexplained or recurrent spontaneous Oral contraceptives or hormone replacement Sepsis (< 1 month) Serious lung disease, including pneumonia (< 1 month) Abnormal pulmonary function Acute myocardial infarction Congestive heart failure (< 1 month) History of inflammatory bowel disease Medical patient at bed rest Age 61-74 Arthroscopic surgery Major open surgery (> 45 min) Laparoscopic surgery (> 45 min) Malignancy Confined to bed (> 72 hours) Immobilizing plaster cast Central venous access Age >= 75 History of VTE Family history of VTE Factor V Leiden Prothrombin [id number] Lupus anticoagulant Anticardiolipin antibodies Elevated serum homocysteine Heparin-induced thrombocytopenia Other congenital or acquired thrombophilia Stroke (< 1 month) Elective arthroplasty Hip, pelvis, or leg fracture Acute spinal cord injury (< 1 month) Prophylaxis Regimen: Total Risk Factor Score Risk Level Prophylaxis Regimen 0-1 Low Early ambulation 2 Moderate Order ONE of the following: *Sequential Compression Device (SCD) *Heparin 5000 units SQ BID 3-4 Higher Order ONE of the following medications: *Heparin 5000 units SQ TID *Enoxaparin/Lovenox 40 mg SQ daily (WT < 150 kg, CrCl > 30 mL/min) *Enoxaparin/Lovenox 30 mg SQ daily (WT < 150 kg, CrCl > 10-29 mL/min) *Enoxaparin/Lovenox 30 mg SQ BID (WT < 150 kg, CrCl > 30 mL/min) AND/OR *Sequential Compression Device (SCD) 5 or more Highest Order ONE of the following medications: *Heparin 5000 units SQ TID (Preferred with Epidurals) *Enoxaparin/Lovenox 40 mg SQ daily (WT < 150 kg, CrCl > 30 mL/min) *Enoxaparin/Lovenox 30 mg SQ daily (WT < 150 kg, CrCl > 10-29 mL/min) *Enoxaparin/Lovenox 30 mg SQ BID (WT < 150 kg, CrCl > 30 mL/min) AND *Sequential Compression Device (SCD) Assessment and Plan Assessment (1) Chest pain: Code(s): R07.9 - Chest pain, unspecified Status: Acute (2) History of CVA with residual deficit: Code(s): I69.30 - Unspecified sequelae of cerebral infarction Status: Chronic (3) HTN (hypertension): Code(s): I10 - Essential (primary) hypertension Status: Chronic (4) COPD (chronic obstructive pulmonary disease): Code(s): J44.9 - Chronic obstructive pulmonary disease, unspecified Status: Chronic (5) Diabetes mellitus: Code(s): E11.9 - Type 2 diabetes mellitus without complications Status: Chronic Plan Chest pain - Pt is a 58 y/o WM with CVA with chronic right hemiparesis/neuropathy/ expressive aphasia, COPD, diabetes, HTN, Hyperlipidemia, Hypothyroidism, and prostate cancer undergoing XRT. - Pt presented to the ED at [facility] [place] on 07/23/18 with reported chest pain. The pt is unable to provide meaningful information due to his expressive aphasia from a prior stroke so history is significantly limited. His was present for the examination and states that the pt pointed to his chest as if it was really bothering him this morning when they were on their way to his orthopedic physician follow-up for evaluation of intermittent knee pain. - Labs in the ED notes his Coumadin to be subtherapeutic with INR 1.7. - His CE were negative x 1. - CTA Thorax was negative for PE, noted patchy infiltrate within the right lower lobe consistent with atelectasis, moderate bullous emphysema bilaterally. - Trend CE and EKG - Telemetry - 2D echo - Lexiscan in AM - Supportive care - BP is low but review of outpt records indicate BP is chronically low in the 80 -90s. Ok to resume pts chronic ER Morphine. - Pt is on chronic narcotics for chronic neuropathic pain Right knee pain RLE erythema/swelling, chronic - Pt was also noted to have some redness and swelling to his RLE. - LE Venous Doppler Study was negative for lower extremity deep venous thrombosis. - He was given a dose of Clindamycin for possible cellulitis in the ED. Pts feels the skin changes are consistent with his chronic skin changes. The RLE is not warmr to the touch than the left. - Pt had been scheduled to see Dr. Kendall today for right knee pain. - Obtain Xray right knee - Case discussed between Dr. Peguero and Dr. Kendall and Dr. Kendall will see the pt tomorrow in consultation. Diabetes mellitus - Hold OHA - NovoLog SSI - Accu checks COPD - Duonebs PRN Hx of CVA with residual effects Expressive aphasia Subtherapeutic INR - Resume home dose of Coumadin 5mg SuTuWeFrSa and 7.5mg MoTh - Lovenox 40mg x 1 dose today - Repeat INR in AM DVT prophylaxis with SCDs Attending Attestation The exam, history, and the medical decision-making described in the above note were completed with the assistance of the mid-level provider. I reviewed and agree with the findings presented. I attest that I had a [id number] encounter with the patient on the same day, and personally performed and documented my assessment and findings in the medical record. Patient examined. Assessment and plan formulated with Radha Lino PA-C. I agree with the above. _ (1) Chest pain Qualifiers: Chest pain type: unspecified Ischemic chest pain type: Qualified Code(s): R07.9 - Chest pain, unspecified
[2018-07-23] MEDS ORDERED: Dextrose 50% in Water 50 ML Vial IV.PUSH PRN (16:43)
[2018-07-23] MEDS ORDERED: Clindamycin 600 mg/NS Premix 600 MG/50 ML PIGGYBACK IV.SIG ONE (17:00)
[2018-07-23] MEDS ORDERED: Non-Formulary Drug (Lovastatin [Lovastatin] 40 MG) PO SCH (18:00)
[2018-07-23 18:03] LABS: Creatine Kinase 38 U/L (39-308)
[2018-07-23] MEDS: Insulin NovoLOG Aspart Correctional Sugar Inj SQ SCH ×2 (18:51→22:48)
[2018-07-23] MEDS: Morphine Sulfate 30 MG SR Tablet PO PRN (19:13)
[2018-07-23] MEDS: Montelukast 10 MG Tablet PO SCH (19:15)
--- NOTE | 2018-07-23 19:44 | XR ---
EXAM DATE: 07/23/2018 7:41 PM EST AGE/SEX: 58 years / Male INDICATIONS: Right knee pain after fall, swelling. CLINICAL DATA: This is the patient's initial encounter. Patient reports that signs and symptoms have been present for 2 weeks and indicates a pain score of 6/10. MEDICAL/SURGICAL HISTORY: None. None. COMPARISON: TLI, MR LOWER LEG W/O CONTRAST, RIGHT, 11/14/2016. . FINDINGS: Bone density is diffusely diminished. Popliteal artery calcifications. No effusion, fracture or dislo cation. CONCLUSION: No evidence of recent bony injury. Electronically signed by: Nasir Moreno MD Board Certified Radiologist 07/23/2018 7:42 PM EST
[2018-07-23] MEDS: Senna/Docusate Sodium 8.6/50 MG Tablet PO SCH (21:07)
[2018-07-24 00:16] LABS: Creatine Kinase 40 U/L (39-308)
[2018-07-24] MEDS: Morphine Sulfate 30 MG SR Tablet PO PRN ×2 (02:59→10:30)
[2018-07-24 07:17] LABS: Baso # (Auto) 0.1 th/mm3 (0.0-0.2); Baso % (Auto) 0.7 % (0.0-2.0); Eos # (Auto) 0.1 th/mm3 (0.0-0.4); Eos % (Auto) 1.1 % (0.0-4.0); Hematocrit 44.2 % (39.0-51.0); Hemoglobin 15.1 gm/dL (13.0-17.0); Lymph # (Auto) 1.7 th/mm3 (1.0-4.8); Lymph % (Auto) 16.5 % (9.0-44.0); Mean Corpuscular HGB Conc 34.3 % (32.0-36.0); Mean Corpuscular Hemoglobin 30.4 pg (27.0-34.0); Mean Corpuscular Volume 88.6 fL (80.0-100.0); Mean Platelet Volume 8.4 fL (7.0-11.0); Mono # (Auto) 0.9 th/mm3 (0.0-0.9); Mono % (Auto) 8.5 % (0.0-8.0); Neut # (Auto) 7.4 th/mm3 (1.8-7.7); Neut % (Auto) 73.2 % (16.0-70.0); Platelet Count 325 th/mm3 (150-450); Red Blood Count 4.99 mil/mm3 (4.50-5.90); Red Cell Distribution Width 15.8 % (11.6-17.2); White Blood Count 10.1 th/mm3 (4.0-11.0)
[2018-07-24 07:23] LABS: INR 2.2 Ratio; Prothrombin Time 22.4 sec (9.8-11.6)
[2018-07-24 07:32] LABS: Anion Gap 10 meq/L (5-15); Blood Urea Nitrogen 7 mg/dL (7-18); Calcium 8.3 mg/dL (8.5-10.1); Carbon Dioxide 23.2 meq/L (21.0-32.0); Chloride 106 meq/L (98-107); Glomerular Filtration Rate Greater Than 89 mL/min (>89); Glucose,Random 130 mg/dL (74-106); Potassium 4.1 meq/L (3.5-5.1); Sodium 139 meq/L (136-145)
[2018-07-24] MEDS: Gabapentin 300 MG Capsule PO SCH ×3 (08:06→17:45)
[2018-07-24] MEDS: Insulin NovoLOG Aspart Correctional Sugar Inj SQ SCH ×3 (08:23→17:31)
[2018-07-24] MEDS: Senna/Docusate Sodium 8.6/50 MG Tablet PO SCH (08:25)
[2018-07-24] MEDS ORDERED: Regadenoson Inj 0.4 MG/5 ML Syringe IV.PUSH ONE (08:57)
[2018-07-24] MEDS ORDERED: Levothyroxine 75 MCG Tablet PO SCH (09:00)
--- NOTE | 2018-07-24 09:13 | MB ---
cc: Ariel Kendall MD DATE: 07/24/2018 REASON FOR CONSULTATION: Right knee pain. HISTORY OF PRESENT ILLNESS: This pleasant 58-year-old male is seen today complaining of knee pain. His states he banged his knee a couple of weeks ago and it was hurting for which he was supposed to see me in the office; but on the way to the office, he had chest pain and was admitted to [facility] for evaluation of chest pain yesterday. Today, he is feeling better. He is waiting to get more tests done before he goes home. PHYSICAL EXAMINATION: His right knee is slightly tender circumferentially. Otherwise, there are no deformities noted. There is some bruising. He has right lower extremity weakness from previous stroke. He does have history of total hip from many years ago. DIAGNOSTIC DATA: Otherwise, x-rays reveal no abnormalities of the knee other than osteopenia. IMPRESSION AND PLAN: Impression at this time is resolving contusion, right knee for which no treatment is indicated at the present time. He is advised that if he is still hurting in 2 weeks' time, we will order a CT scan and follow him up in the office thereafter as needed for a recheck. MD ANALILIA Painter/bettie , 08:30 AM , 08:36 AM
--- NOTE | 2018-07-24 10:18 | NM ---
EXAM DATE: 07/24/2018 10:10 AM EST AGE/SEX: 58 years / Male INDICATIONS:Angina. . Chest pain. CLINICAL DATA: This is the patient's initial encounter. Patient reports that signs and symptoms have been present for 1 day and indicates a pain score of 6/10. MEDICAL/SURGICAL HISTORY: Diabetes mellitus type II. Stroke. . Right hip replacement. COMPARISON: No prior exams available for comparison. DOSE: 10.2 mCi Tc 99m Myoview at rest 30.0 mCi [id number] at stress 0.4 mg Lexiscan STRESS SYMPTOMS: None. EJECTION FRACTION: 52 % TECHNIQUE: The patient underwent pharmacologic stress with infusion of prescribed dose. Continuous ECG tracing was monitored during stress. Gated SPECT imaging was performed after stress and conventi onal SPECT imaging was performed at rest. The examination was performed on a SPECT/CT scanner, both attenuation and non-corrected datasets were reviewed. FINDINGS: Distribution: The maximum perfused segment at stress is in the lateral wall. Perfusion Study: Fixed defects are noted involving the anterior, apical and septal bailey consistent w ith large infarct in the LAD distribution. No reversible defect is noted to suggest ischemia. Gated Study: Apical and septal hypokinesis are noted. The ejection fraction is calculated at 52%. RISK CATEGORY: Intermediate (1-3 % Annual Mortality Rate) CONCLUSION: 1. Large LAD infarct. 2. No reversible defect to suggest ischemia. 3. Apical and septal hypokinesis with left ventricular ejection fraction equaling 52%. Electronically signed by: Ike Reina MD Board Certified Radiologist 07/24/2018 10:16 AM EST
[2018-07-24 13:04] VITALS: TEMP 98
--- NOTE | 2018-07-24 15:51 | ECG ---
Date Performed: 07/24/2018 Time Performed: 04:33:02 PTAGE: 58 years EKG: Sinus rhythm LOW QRS VOLTAGE IN PRECORDIAL LEADS Since the previous tracing, no significant change noted BORDERLI NE ECG PREVIOUS TRACING : 07/23/2018 22.09 DOCTOR: Jamee Taylor Interpretating Date/Time 07/24/2018 15:48:13
--- NOTE | 2018-07-24 15:51 | ECG ---
Date Performed: 07/23/2018 Time Performed: 12:00:54 PTAGE: 58 years EKG: SINUS BRADYCARDIA WITH FIRST DEGREE AV BLOCK LOW QRS VOLTAGE IN PRECORDIAL LEADS SEPTAL YONG CARDIAL INFARCTION Since the previous tracing, no significant change noted ABNORMAL ECG PREVIOUS TRACING : 01/01/2009 15.45 DOCTOR: Jamee Taylor Interpretating Date/Time 07/24/2018 15:48:29
--- NOTE | 2018-07-24 15:51 | ECG ---
Date Performed: 07/23/2018 Time Performed: 22:09:44 PTAGE: 58 years EKG: Sinus rhythm LOW QRS VOLTAGE IN PRECORDIAL LEADS POSSIBLE RIGHT VENTRICULAR CONDUCTION DELAY POSSIBLE SEPTAL MYOC ARDIAL INFARCTION Since the previous tracing, no significant change noted BORDERLINE ECG PREVIOUS TRACING : 07/23/2018 12.00 DOCTOR: Jamee Taylor Interpretating Date/Time 07/24/2018 15:48:21
[2018-07-24 15:54] VITALS: BP 92/67; PULSE 88; RESP 18
[2018-07-24 16:38] VITALS: O2SAT 94
--- NOTE | 2018-07-24 16:42 | P.PNIM ---
Addendum entered and electronically signed by ALBIN Mills 18:28: pt and do. it want to wait in the hospital for lipid profile. Will dc with prescription for lipid panel results to PCP. Original Note: Subjective Interval history: Patient seen with at bedside patient denies chest pain Physical Exam Vital signs: Last Vital Signs Temp 98.0 F 07/24/18 15:52 Pulse 88 07/24/18 15:52 Resp 18 07/24/18 15:52 BP 92/67 L 07/24/18 15:52 Pulse Ox 94 L 07/24/18 16:28 Narrative: GENERAL: NAD, Awake, alert, expressive aphasia SKIN: Warm and dry. Chronic skin changes on the RLE with some swelling and mild erythema HEENT: Atraumatic. Normocephalic. Pupils equal and round. No scleral icterus. No injection or drainage. No nasal bleeding or discharge. Mucous membranes pink and moist. NECK: Trachea midline. No JVD. CARDIO: Regular RESP: Clear to auscultation. Breath sounds equal bilaterally. ABD: +BS, soft, non-tender, nondistended. Hepatic and splenic margins not palpable. EXT: Extremities without clubbing, cyanosis, or edema. No obvious deformities. NEURO: Awake and alert. Right sided paralysis. Expressive aphasia. PSYCH: Appropriate mood and affect Results Labs CBC & Chem 7: 07/24/18 06:39 07/24/18 06:39 Assessment and Plan Assessment (1) History of CVA with residual deficit: Code(s): I69.30 - Unspecified sequelae of cerebral infarction Status: Chronic (2) Chest pain: Code(s): R07.9 - Chest pain, unspecified Status: Acute (3) HTN (hypertension): Code(s): I10 - Essential (primary) hypertension Status: Chronic (4) COPD (chronic obstructive pulmonary disease): Code(s): J44.9 - Chronic obstructive pulmonary disease, unspecified Status: Chronic (5) Diabetes mellitus: Code(s): E11.9 - Type 2 diabetes mellitus without complications Status: Chronic Plan Chest pain - Pt is a 58 y/o WM with CVA with chronic right hemiparesis/neuropathy/ expressive aphasia, COPD, diabetes, HTN, Hyperlipidemia, Hypothyroidism, and prostate cancer undergoing XRT. - Pt presented to the ED at [facility] on 07/23/18 with reported chest pain. The pt is unable to provide meaningful information due to his expressive aphasia from a prior stroke so history is significantly limited. His was present for the examination and states that the pt pointed to his chest as if it was really bothering him this morning when they were on their way to his orthopedic physician follow-up for evaluation of intermittent knee pain. - Labs in the ED notes his Coumadin to be subtherapeutic with INR 1.7. - His CE were negative x 3 - CTA Thorax was negative for PE, noted patchy infiltrate within the right lower lobe consistent with atelectasis, moderate bullous emphysema bilaterally. - Trend CE and EKG - Continuous Telemetry while in the hospital - 2D echo completed but report not yet available - patient to follow up with cardiology and PCP after DC - Lexiscan 07/24 revealed: 1. Large LAD infarct. 2. No reversible defect to suggest ischemia. 3. Apical and septal hypokinesis with left ventricular ejection fraction equaling 52% - Dr. Peguero discussed Lexiscan with Cardiology Dr. Vargas. LAD defect appears fixed likely old damage. Cardiology recommending addition of beta lilly and follow up outpatient. Unable to add beta lilly due to hypotension. - Supportive care - BP is low but review of outpt records indicate BP is chronically low in the 80 -90s. Ok to resume pts chronic ER Morphine. - Pt is on chronic narcotics for chronic neuropathic pain Right knee pain RLE erythema/swelling, chronic - Pt was also noted to have some redness and swelling to his RLE. - LE Venous Doppler Study was negative for lower extremity deep venous thrombosis. - He was given a dose of Clindamycin for possible cellulitis in the ED. Pts feels the skin changes are consistent with his chronic skin changes. The RLE is not warmr to the touch than the left. - Pt had been scheduled to see Dr. Kendall today for right knee pain. - Xray right knee: No evidence of recent bony injury. - Case discussed between Dr. Peguero and Dr. Kendall and Dr. Kendall will see the pt tomorrow in consultation. - per Dr. Kendall consultation note - likely knee contusion, no intervention needed at this time. Follow up with Dr. Kendall in 2 weeks. Diabetes mellitus - Hold OHA - NovoLog SSI - Accu checks COPD - Duonebs PRN Hx of CVA with residual effects Expressive aphasia Subtherapeutic INR - Resume home dose of Coumadin 5mg SuTuWeFrSa and 7.5mg MoTh - Lovenox 40mg x 1 dose today - Repeat INR 07/24 -> INR 2.2 DVT prophylaxis with SCDs Plan to DC home today in stable condition on a heart healthy diet. Patient to continue hoe medications. Patient to follow up with PCP, cardiology and orthopedic surgery after DC. Attending Attestation The exam, history, and the medical decision-making described in the above note were completed with the assistance of the mid-level provider. I reviewed and agree with the findings presented. I attest that I had a [id number] encounter with the patient on the same day, and personally performed and documented my assessment and findings in the medical record. Patient examined. Assessment and plan formulated with Elodia Mitchell PA-C. I agree with the above. Progress Note: Quality VTE Deep Vein Thrombosis/Pulmonary Embolism Present on Admission: No _ (1) Chest pain Qualifiers: Chest pain type: unspecified Ischemic chest pain type: Qualified Code(s): R07.9 - Chest pain, unspecified
[2018-07-24] MEDS: Montelukast 10 MG Tablet PO SCH (17:51)
[2018-07-24 17:53] LABS: Chol/HDL Ratio 3.76 Ratio; HDL Cholesterol 35.3 mg/dL (40.0-60.0)
--- NOTE | 2018-07-24 18:43 | ECHRPT ---
Indication: CHEST PAIN CONCLUSIONS The left ventricular systolic function is mildly reduced with an estimated ejection fraction in the range of 45- 50%. Akinetic apical cap wall motion, with possible aneurysm. Doppler parameters are consistent with impaired left ventricular relaxtion (grade 1 diastolic dysfun ction). There is trace tricuspid valve regurgitation. BP: / HR: Rhythm: Sinus MEASUREMENTS (Male / Female) Normal Values Technical Quality:Poor 2D ECHO LV Diastolic Diameter PLAX 5.8 cm 4.2 - 5.9 / 3.9 - 5.3 cm LV Systolic Diameter PLAX 4.6 cm IVS Diastolic Thickness 1.0 cm 0.6 - 1.0 / 0.6 - 0.9 cm LVPW Diastolic Thickness 1.0 cm 0.6 - 1.0 / 0.6 - 0.9 cm LV Relative Wall Thickness 0.3 RV Internal Dim ED PLAX 2.4 cm LVOT Diameter 2.0 cm Aortic Root Diameter 3.5 cm LA Systolic Diameter LX 3.4 cm 3.0 - 4.0 / 2.7 - 3.8 cm M-MODE AV Cusp Separation MM 1.9 cm DOPPLER AV Peak Velocity 101.0 cm/s AV Peak Gradient 4.1 mmHg LVOT Peak Velocity 81.4 cm/s LVOT Peak Gradient 2.7 mmHg AV Area Cont Eq pk 2.5 cm Mitral E Point Velocity 60.2 cm/s Mitral A Point Velocity 103.0 cm/s Mitral E to A Ratio 0.6 LV E' Lateral Velocity 7.7 cm/s Mitral E to LV E' Lateral Ratio 7.8 LV E' Septal Velocity 5.2 cm/s Mitral E to LV E' Septal Ratio 11.6 TR Peak Velocity 79.3 cm/s TR Peak Gradient 2.5 mmHg Right Atrial Pressure 10.0 mmHg Pulmonary Artery Systolic Pressu 12.5 mmHg Right Ventricular Systolic Press 12.5 mmHg PV Peak Velocity 105.0 cm/s PV Peak Gradient 4.4 mmHg FINDINGS LEFT VENTRICLE Normal left ventricular size. Wall thickness is normal. The left ventricular systolic function is mildly reduced with an estimated ejection fraction in the range of 45- 50%. Akinetic apical cap wall motion, with possible aneurysm. Doppler parameters are consistent with impaired left ventricular relaxtion (grade 1 diastolic dysfun ction). RIGHT VENTRICLE Grossly normal LEFT ATRIUM The left atrial size is normal. RIGHT ATRIUM The right atrial size is normal. ATRIAL SEPTUM Normal atrial septal thickness AORTA The aortic root and proximal ascending aorta are normal in size on limited imaging. MITRAL VALVE Structurally normal mitral valve. No mitral valve stenosis or regurgitation. AORTIC VALVE Trileaflet aortic valve. No aortic valve stenosis or regurgitation. TRICUSPID VALVE Structurally normal tricuspid valve. There is trace tricuspid valve regurgitation. The estimated pulmonary arterial pressure is 13 mmHg. PULMONARY VALVE No pulmonary valve regurgitation or stenosis. VESSELS The inferior vena cava is normal in size. PERICARDIUM A prominent epicardial fat pad is present. Amos Soto DO (Electronically Signed) Final Date:24 July 2018 18:42
== END 2018-07-24 19:09 | disposition home or self-care (01) ==
LOC: NEPC 10:18 → NEDA 10:18 → NEPHCDU 18:06
PROVIDERS: ADMIT Hospitalist; ATTEND Hospitalist
DX: I69.30 Unspecified sequelae of cerebral infarction; R60.0 Localized edema; Z99.3 Dependence on wheelchair; R79.1 Abnormal coagulation profile; F17.210 Nicotine dependence, cigarettes, uncomplicated; Z79.01 Long term (current) use of anticoagulants; M85.861 Other specified disorders of bone density and structure, right lower leg; I69.320 Aphasia following cerebral infarction; R91.8 Other nonspecific abnormal finding of lung field; I20.9 Angina pectoris, unspecified; M25.561 Pain in right knee; J43.9 Emphysema, unspecified; I10 Essential (primary) hypertension; E11.9 Type 2 diabetes mellitus without complications; R79.89 Other specified abnormal findings of blood chemistry; J44.9 Chronic obstructive pulmonary disease, unspecified; Z85.828 Personal history of other malignant neoplasm of skin; I69.341 Monoplegia of lower limb following cerebral infarction affecting right dominant side; M41.34 Thoracogenic scoliosis, thoracic region